=== PATIENT | female | born 1970 | race Caucasian/White ===

== ENCOUNTER 2019-06-24 18:41 | Emergency (ER) | payer OTHER ==
[~2019-06-24] VITALS: Ht 162.6 cm; Wt 56.7 kg
[2019-06-24] MEDS ORDERED: LUNESTA3 MG PO (19:37)
[2019-06-24] MEDS ORDERED: LIPITOR20 MG PO (19:37)
[2019-06-24 20:21] LABS: ABSOLUTE NEUTROPHILS 3.9 thou/uL (1.4-8.2); BASOPHILS 0.5 % (0.0-2.0); EOSINOPHILS 0.1 % (0.0-3.0); HEMATOCRIT 37.9 % (37.0-47.0); HEMOGLOBIN 13.1 gm/dL (12.0-15.0); LYMPHOCYTES 29.9 % (24.0-44.0); MCH 32.7 pg (26.0-34.0); MCHC 34.5 g/dL (28.0-37.0); MCV 94.9 fL (80.0-100.0); MONOCYTES 9.8 % (1.0-8.0); PLATELET COUNT 340 thou/uL (150-400); POLYS 59.7 % (36.0-66.0); WBC 6.6 thou/uL (4.0-11.0)
[2019-06-24 20:35] LABS: ALBUMIN 4.3 g/dL (3.4-5.0); DIRECT BILIRUBIN 0.2 mg/dL (<0.1-0.2); LIPASE 159 U/L (73-393); PHOSPHORUS 2.6 mg/dL (2.5-4.9); SGOT 180 U/L (15-37); SGPT 65 U/L (30-65); TOTAL BILIRUBIN 0.5 mg/dL (<0.1-1.0); TOTAL PROTEIN 7.8 g/dL (6.4-8.2); TROPONIN-I <0.06 ng/mL (<0.06)
[2019-06-24] MEDS ORDERED: ZOFRAN ODT4 MG PO (23:05)
[2019-06-24 23:37] VITALS: BP 146/89
--- NOTE | 2019-06-25 17:10 | EKG ---
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
== END 2019-06-24 23:37 | disposition home or self-care (01) ==
LOC: ER 18:41
PROVIDERS: Emergency Medicine
DX: F10.129 Alcohol abuse with intoxication, unspecified (principal); Z88.2 Allergy status to sulfonamides; Z79.899 Other long term (current) drug therapy